=== PATIENT | male | born 1965 | race Caucasian/White ===

== ENCOUNTER 2017-07-19 20:23 | Emergency (ER) | payer OTHER ==
[~2017-07-19] VITALS: Ht 180.3 cm; Wt 93.0 kg
[2017-07-19 20:30] VITALS: BP 158/101
[2017-07-19] MEDS ORDERED: HYDROCODONE/APAP 10/325MG 1 EA TABLET PO STA (21:06)
[2017-07-19] MEDS ORDERED: CLINDAMYCIN HCL 150 MG CAPSULE PO STA (21:06)
[2017-07-19] MEDS ORDERED: CLINDAMYCIN HCL 150 MG CAPSULE PO ONE (21:12)
[2017-07-19] MEDS ORDERED: HYDROCODONE/APAP 10/325MG 1 EA TABLET ONE (21:12)
== END 2017-07-19 21:16 | disposition home or self-care (01) ==
LOC: ER 20:29
DX: K08.89 Other specified disorders of teeth and supporting structures (principal)
CPT/HCPCS: 99283; A4606; Z7610

== ENCOUNTER 2019-07-25 07:55 | Emergency (ER) | payer OTHER ==
[~2019-07-25] VITALS: Ht 180.3 cm; Wt 83.9 kg
[2019-07-25 08:02] VITALS: BP 157/86
--- NOTE | 2019-07-25 08:12 | NUR ---
AT BEDSIDE FOR EVAL.
--- NOTE | 2019-07-25 08:36 | NUR ---
WOUND CARE PROVIDED.
--- NOTE | 2019-07-25 08:44 | NUR ---
Patient discharged to home in stable condition. Written and verbal after care instructions given. Patient verbalizes understanding of instruction.
== END 2019-07-25 08:44 | disposition home or self-care (01) ==
LOC: ER 08:00
DX: L03.114 Cellulitis of left upper limb (principal); Z88.1 Allergy status to other antibiotic agents; Z60.2 Problems related to living alone

== ENCOUNTER 2019-08-01 13:05 | Emergency (ER) | payer OTHER ==
[~2019-08-01] VITALS: Ht 180.3 cm; Wt 80.7 kg
--- NOTE | 2019-08-01 13:18 | NUR ---
PT CAME INTO THE ED C/O L HAND SWELLING FOR A WEEK, SPIDER BITE PER PATIENT. PT AAOX4, VSS, BREATHING EVEN W/ NO ACUTE DISTRESS NOTED, AND AMBULATORY. PT CONNECTED TO THE MONITOR AND POX. WILL CONTINUE TO MONITOR.
[2019-08-01] MEDS ORDERED: CEFTRIAXONE 1 G in IV D5W 50 ML IV ONE (14:30)
[2019-08-01] MEDS ORDERED: PIPERACILLIN /TAZOBACTAM 3.375 G in IV D5W 50 ML IV ONE (14:30)
[2019-08-01] MEDS ORDERED: VANCOMYCIN 1 GM in IV D5W 250 ML IV ONE (14:30)
[2019-08-01] MEDS ORDERED: CEFTRIAXONE 1GM BAG (ER ONLY) 50 ML IV ONE (14:35)
[2019-08-01 14:37] LABS: BASOPHILS # (AUTO) 0.1 /CMM (0.0-0.2); BASOPHILS % (AUTO) 1.1 % (0.0-2.0); HEMATOCRIT 42 % (39-51); HEMOGLOBIN 13.9 g/dL (13.5-17.5); LYMPHOCYTES % (AUTO) 28.7 % (20.0-44.0); MEAN CORPUSCULAR HGB CONC 33 g/dl (31.0-36.0); MEAN CORPUSCULAR VOLUME 87 fL (80-96); MONOCYTES # (AUTO) 0.6 /CMM (0.1-1.30); MONOCYTES % (AUTO) 8.2 % (2.0-12.0); PLATELET COUNT (AUTO) 311 /CMM (150-450); RED BLOOD CELL COUNT(AUTO) 4.77 MIL/uL (4.5-6.0); WHITE BLOOD COUNT (AUTO) 6.8 K/uL (4.3-11.0)
--- NOTE | 2019-08-01 14:38 | NUR ---
SAÚL BESS MADE AWARE OF AMOXICILLIN ALLERGY. PA ORDERED TO CONTINUE W/ [id number].
[2019-08-01 14:44] LABS: CALCIUM, SERUM 9.1 mg/dL (8.5-10.1); POTASSIUM 3.7 mmol/L (3.5-5.1)
[2019-08-01] MEDS ORDERED: SULF1TAB3 PO (14:57)
[2019-08-01] MEDS ORDERED: FLUT16SP BNOSTRILS (14:57)
[2019-08-01] MEDS ORDERED: IBUP-1953 PO (14:57)
[2019-08-01 16:36] VITALS: BP 134/88
--- NOTE | 2019-08-01 16:37 | NUR ---
Patient discharged to home in stable condition. Written and verbal after care instructions given. Patient verbalizes understanding of instruction.IV removed. Catheter intact and site benign. Pressure and 4x4 applied to site. No bleeding noted. No allergic reactions noted.
== END 2019-08-01 16:38 | disposition home or self-care (01) ==
LOC: ER 13:05
DX: L02.512 Cutaneous abscess of left hand (principal); Z72.0 Tobacco use; Z60.2 Problems related to living alone; Z88.1 Allergy status to other antibiotic agents
CPT/HCPCS: 36415; 80048; 83605; 85025; 87040 ×2; 87070; 96365; 96375; 99283; 99406; A6403; J0696 ×2; J3370; J7060 ×2; J2543

== ENCOUNTER 2019-08-03 08:00 | Emergency (ER) | payer OTHER ==
[~2019-08-03] VITALS: Ht 177.8 cm; Wt 79.4 kg
[~2019-08-03 08:00] MED LIST: FLUT16SP BNOSTRILS; IBUP-1953 PO; SULF1TAB3 PO
[2019-08-03 08:12] VITALS: BP 122/84
== END 2019-08-03 09:00 | disposition home or self-care (01) ==
LOC: ER 08:00
DX: L03.114 Cellulitis of left upper limb (principal); Z88.1 Allergy status to other antibiotic agents; Z60.2 Problems related to living alone; Z79.899 Other long term (current) drug therapy
CPT/HCPCS: 99283; A6403